=== PATIENT | female | born 1950 | race Caucasian/White ===

== ENCOUNTER → 2016-10-24 | Outpatient (CLI) | payer BC ==
[~2016-10-24] MED LIST: ASPIRIN 81M81 MG/TA2 PO; B COMPLEX & B121 TAB PO; MULTI-VITAMINS1 TAB PO; NITROSTAT0.4 MG/TAB SL; OMEPRAZOLE D/R20 MG PO; PREMPRO 0.3 MG-1 TAB PO; VITAMIN B1225 MCG
== END ==
LOC: MC.RAD 14:34
DX: Z12.31 Encounter for screening mammogram for malignant neoplasm of breast (principal)

== ENCOUNTER → 2018-03-29 | Outpatient (CLI) | payer BC | LOC: MC.RAD 10:17 | DX: Z12.31 Encounter for screening mammogram for malignant neoplasm of breast (principal) ==

== ENCOUNTER → 2019-07-16 | Outpatient (CLI) | payer BC | LOC: MC.RAD 05-28 11:00 | DX: Z12.31 Encounter for screening mammogram for malignant neoplasm of breast (principal) ==

== ENCOUNTER 2019-08-19 09:48 | Day surgery (SDC) | payer BC ==
[~2019-08-19] VITALS: Ht 160 cm; Wt 71.0 kg
[2019-08-19 10:21] VITALS: BP 128/87; PULSE 71; TEMP 97.8
[2019-08-19] MEDS ORDERED: PRILOSEC 20MG20 MG PO (10:23)
[2019-08-19 12:45] VITALS: BP 106/67; PULSE 71
--- NOTE | 2019-08-19 12:45 | NUR ---
PT TO BAY 5 VIA CART FROM ENDO ROOM, WALKED TO CHAIR, IN ROOM. PT IS ALERT AND ORIENATED, CALL LIGHT IN REACH, TAKES WATER
[2019-08-19 13:00] VITALS: BP 122/75; PULSE 70
--- NOTE | 2019-08-19 13:00 | NUR ---
INTO SEE PT AND , NO CHANGES OR REQUESTS
[2019-08-19 13:15] VITALS: BP 136/79; PULSE 66
--- NOTE | 2019-08-19 13:30 | NUR ---
REVIEWED DISCHARGE INST. WITH PT AND ON FOLLOWUP AND ACTIVITY WITH VERBAL UNDERSTANDING. IV D'CD INTACT, PT UP IN ROOM, DRESSED, DISCHARGED AT 1335 VIA W/C TO CAR WITH
== END 2019-08-19 13:35 | disposition home or self-care (01) ==
LOC: SDCO 09:48
DX: Z12.11 Encounter for screening for malignant neoplasm of colon (principal); K62.89 Other specified diseases of anus and rectum; K57.30 Diverticulosis of large intestine without perforation or abscess without bleeding
CPT/HCPCS: J2250; J3010; J7030